=== PATIENT | female | born 1960 | race American Indian/Alaskan Native ===

== ENCOUNTER 2017-03-06 10:00 | Day surgery (SDC) | payer OTHER ==
[2017-02-20 09:50] VITALS: BMI 16.8
[2017-03-06 11:08] LABS: ADD MANUAL DIFF? NO
[2017-03-06 11:21] LABS: BLOOD UREA NITROGEN 9 mg/dL (7-21); CALCIUM 9.6 mg/dL (8.4-10.5); CARBON DIOXIDE 30 mmol/L (21-33); CHLORIDE 103 mmol/L (98-107); GFR AFRICAN-AMERICAN > 60; GLUCOSE,RANDOM 88 mg/dL (70-110); INR 1.21 (0.93-1.08); PARTIAL THROMBOPLASTIN TIME 31.7 Seconds (23.7-30.8); POTASSIUM 3.9 mmol/L (3.6-5.0); SODIUM 142 mmol/L (132-148)
[2017-03-06 11:32] LABS: EOS % 0.4 % (1.5-5.0); GRAN # 1.14 (1.4-6.5); GRAN % 45.4 % (50.0-68.0); LYMPH # 1.1 (1.2-3.4); LYMPH % 42.2 % (22.0-35.0); MEAN CELL VOLUME 90.9 fL (80.0-105.0); MEAN CORPUSCULAR HEMOGLOBIN 29.5 pg (25.0-35.0); MEAN CORPUSCULAR HGB CONC 32.5 g/dl (31.0-37.0); MEAN PLATELET VOLUME 11.3 fl (7.0-11.0); MONO # 0.3 (0.1-0.6); PLATELET COUNT 118 10^3/uL (120.0-450.0); RED CELL DISTRIBUTION WIDTH 13.3 % (11.5-14.5)
[2017-03-06 11:36] LABS: WHITE BLOOD COUNT 2.5 10^3/ul (4.5-11.0)
--- NOTE | 2017-03-06 11:53 | CP.SDSHP ---
Same Day Surgery H & P - History Proposed Procedure: Cat scan guided biopsy of R side of the neck Pre-Op Diagnosis: Lung Ca - Previous Medical/Surgical History Cardiac: Hypertension Pulmonary: Asthma, Other (history of Lung Ca diagnosed 6 years ago) Neuro: Seizure Disorder Misc: Anemia, Other (Gerd,history of Fibroids,pinched nerve in the lower back, anxiety, depression.) Pain: 9. 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 Previous Surgical History: Surgery for abscess R upper arm following skin popping of Heroin. Insertion of Port R upper chest wall. - Allergies Allergies: Allergies No Known Allergies Allergy (Verified 02/20/17 09:50) - Physical Exam General Appearance: Fairly nourished female. Mental Status: Alert & Oriented x3 Neuro: WNL Heart: WNL Lungs: WNL - {Optional Preform as Required} Abdomen: WNL Other Pertinent Findings: Portacath noted in the R upper chest wall. Tender enlarged R supraclavicular L N noted. Prominent veins noted on the R side of the neck and chest. - Impression Impression: Lung Ca - Date & Time Date: 03/06/17 Time: 11:52 Short Stay Discharge - Short Stay Discharge Admitting Diagnosis/Reason for Visit: LUNG CA R22.1/C34.11 Disposition: HOME/ ROUTINE Referrals: Devang Joseph MD [Primary Care Provider] -
[2017-03-06] MEDS ORDERED: Midazolam 2 MG/2 ML VIAL ONE ×2 (12:34→12:39)
[2017-03-06] MEDS ORDERED: Oxycodone/Acetaminophen 5/325 mg Tab PO PRN (13:10)
[2017-03-06] MEDS ORDERED: Sodium Chloride 0.45% 1,000 ML IV SCH (13:15)
[2017-03-06 14:24] VITALS: BP 135/84; PULSE 69; RESP 16; TEMP 98.1; O2SAT 99
--- NOTE | 2017-03-06 15:54 | CT ---
PROCEDURE: CT guided neck biopsy. HISTORY: Non-small cell lung cancer. 4 cm neck mass. Evaluate for metastatic disease. PHYSICIAN(S): Jacob Sifuentes MD. TECHNIQUE: The relative risks and indications of the procedure were explained to the patient and consent obtained. The patient was placed supine on the CT scanner and preliminary images through the neck and upper chest obtained. Conscious sedation and monitoring were provided throughout the procedure by a nurse. There is a 4 cm infiltrative mass adjacent to the thyroid. A right anterior oblique approach was selected and the area prepped and draped in the usual sterile fashion. 1% Xylocaine was used to anesthetize the skin and soft tissues. A 17-gauge guiding needle was advanced into the 4 cm right neck mass. Its position was confirmed with CT. Using coaxial technique, multiple core biopsies were obtained. The postprocedure images show no evidence of significant hemorrhage. IMPRESSION: 1. CT-guided right neck biopsy as described above.
== END 2017-03-06 14:45 | disposition home or self-care (01) ==
LOC: SDS 10:00
PROVIDERS: ATTEND Radiology Vascular & Interventional Radiology
DX: C76.0 Malignant neoplasm of head, face and neck (principal); Z85.118 Personal history of other malignant neoplasm of bronchus and lung; I10 Essential (primary) hypertension; J45.909 Unspecified asthma, uncomplicated; G40.909 Epilepsy, unspecified, not intractable, without status epilepticus; D64.9 Anemia, unspecified; K21.9 Gastro-esophageal reflux disease without esophagitis; F41.9 Anxiety disorder, unspecified; F32.9 Major depressive disorder, single episode, unspecified
CPT/HCPCS: 36415; 60100; 77012; 80048; 85025; 85610; 85730; 88305; J2250; J2405; J3010; J7030